=== PATIENT | male | born 1945 | race Caucasian/White ===

== ENCOUNTER 2017-05-23 08:59 | Day surgery (SDC) | payer MEDICARE, BC ==
[~2017-05-23 08:59] MED LIST: EPINEPHRINE INJ 1 MG/10 ML DISP.SYRIN ONE; FENTANYL CITRATE INJ/PF 100 MCG/2 ML AMPUL ONE; FLUMAZENIL INJ 0.5 MG/5 ML VIAL ONE; GLUCAGON,HUMAN RECOMB 1 MG INJ ONE; GLYCOPYRROLATE INJ 0.4 MG/2 ML VIAL ONE; MIDAZOLAM 2 MG/2 ML INJ ONE; NALOXONE HCL INJ/PF 0.4 MG/1 ML SDV ONE; ONDANSETRON HCL INJ/PF 4 MG/2 ML SDV ONE
[2017-05-23 09:18] LABS: HEMOGLOBIN 13.2 g/dL (13.5-17.0); HGB HCT DIFFERENCE 1.6; MEAN CORPUSCULAR HEMOGLOBIN 30.2 pg (27.0-33.4); MEAN CORPUSCULAR HGB CONC 34.6 g/dL (32.0-36.0); MEAN CORPUSCULAR VOLUME 87 fl (80-97); RED BLOOD COUNT 4.37 10^6/uL (4.35-5.55); WHITE BLOOD COUNT 5.5 10^3/uL (4.0-10.5)
--- NOTE | 2017-05-23 12:07 | Operative Report ---
Operative Report DATE OF SURGERY: 05/23/17 PREOPERATIVE DIAGNOSIS: Abdominal pain, history of colon polyps POSTOPERATIVE DIAGNOSIS: Abdominal pain, multiple colon polyps. OPERATION: Esophagogastroduodenoscopy with antral biopsy and esophageal biopsies. Colonoscopy with snare polypectomies of 4 polyps. SURGEON: YASH CHAND ANESTHESIA: GA TISSUE REMOVED OR ALTERED: Antral biopsy. Distal esophageal biopsy. Proximal transverse colon polyp. Proximal sigmoid colon polyp. Mid sigmoid colon polyp. Distal sigmoid colon polyp. COMPLICATIONS: None ESTIMATED BLOOD LOSS: Minimal INTRAOPERATIVE FINDINGS: Very mild erythema of the gastric mucosa. But no ulcers. Circumferential salmon colored mucosa of the distal 2 cm of the esophagus. 1 cm sessile polyp at the proximal aspect of the transverse colon. 1 cm sessile polyp at the proximal aspect of the sigmoid colon. 1 cm sessile polyp at the mid sigmoid colon. Half centimeter sessile polyp at the distal sigmoid colon. PROCEDURE: Informed consent was obtained. Patient was brought to the endoscopy suite. IV sedation with Versed and fentanyl was administered. Endoscope was passed via the patient's mouth into the second portion of the duodenum. The duodenum appeared to be normal. The gastric mucosa had very subtle erythema but no ulcers and no erosions. Antral biopsy was taken. At the distal esophagus there was a 2 cm circumferential region of salmon colored mucosa but no ulcers and no masses. This region was biopsied at 4 quadrants. Remainder of the esophagus appeared normal. Patient was repositioned. Digital rectal exam revealed no palpable perianal masses. Endoscope was passed via the patient's anus it was fed to the cecum. The bowel prep was good and visualization was good. The cecum and the right colon appeared normal. At the proximal aspect of the transverse colon there was a 1 cm sessile polyp which was snare polypectomy and the specimen retrieved. At the proximal aspect of the sigmoid colon there was a 1 cm sessile polyp which was snare polypectomied and specimen retrieved. There was another polyp of similar size and appearance at the mid sigmoid colon that was also snare polypectomied need and specimen retrieved. There was a distal sigmoid colon half centimeter polyp which was snare polypectomied and the specimen retrieved. The rectum appeared normal. Patient tolerated procedure well with no apparent complications and was taken to the recovery area in stable condition.
--- NOTE | 2017-05-23 12:09 | PDOC DISCHARGE SUMMARY ---
Discharge Summary (SDC) - Discharge Final Diagnosis: Multiple colon polyps. Abdominal pain. Date of Surgery: 05/23/17 Discharge Date: 05/23/17 Condition: Good Treatment or Instructions: May discharge patient home when met discharge criteria. Follow-up with de upper endoscopy with biopsies. Colonoscopy with multiple snare polypectomies. In 2 weeks. Discharge Diet: As Tolerated Discharge Activity: Activity As Tolerated Report the Following to Your Physician Immediately: Increase in Pain, Fever over 101 Degrees, Unusual Bleeding
[2017-05-23 12:41] VITALS: BP 142/59
== END 2017-05-23 12:40 | disposition home or self-care (01) ==
LOC: END 08:59
PROVIDERS: ATTEND Surgery
PROC: 0DBL8ZX Excision of Transverse Colon, Via Natural or Artificial Opening Endoscopic, Diagnostic (ICD-10-PCS; 2017-05-23)
PROC: 0DB38ZX Excision of Lower Esophagus, Via Natural or Artificial Opening Endoscopic, Diagnostic (ICD-10-PCS; 2017-05-23)
PROC: 0DB68ZX Excision of Stomach, Via Natural or Artificial Opening Endoscopic, Diagnostic (ICD-10-PCS; principal; 2017-05-23 10:30)
PROC: 0DBN8ZX Excision of Sigmoid Colon, Via Natural or Artificial Opening Endoscopic, Diagnostic (ICD-10-PCS; 2017-05-23 10:30)
DX: Z12.11 Encounter for screening for malignant neoplasm of colon (principal); D12.5 Benign neoplasm of sigmoid colon; K63.5 Polyp of colon; Z85.038 Personal history of other malignant neoplasm of large intestine; Z80.0 Family history of malignant neoplasm of digestive organs; K29.50 Unspecified chronic gastritis without bleeding; E11.9 Type 2 diabetes mellitus without complications; Z79.84 Long term (current) use of oral hypoglycemic drugs; Z79.899 Other long term (current) drug therapy; Z79.82 Long term (current) use of aspirin; Z85.828 Personal history of other malignant neoplasm of skin; Z85.820 Personal history of malignant melanoma of skin
CPT/HCPCS: 43239; 45385; 36415; 82962; 82378; 85027; 88342 ×2; 88305 ×2; J2250; J3010; J0171; J1610; J2310; J2405; J3490

== ENCOUNTER → 2018-03-10 | Outpatient (CLI) | payer MEDICARE, BC ==
--- NOTE | 2018-03-10 21:10 | RADIOLOGY REPORT (SQ) ---
EXAM DESCRIPTION: MRI HEAD COMBO COMPLETED DATE/TIME: 03/10/2018 12:50 pm REASON FOR STUDY: ABNORMAL BRAIN CT, VERTIGO R90.89 OTH ABNORMAL FINDINGS ON DIAGNOSTIC IMAGING OF CNSL COMPARISON: CT brain 03/02/2018 TECHNIQUE: Multiplanar imaging includes noncontrasted T1, T2, FLAIR, diffusion with ADC map and post gadolinium contrast T1 sequences. Images stored on PACS. CONTRAST TYPE AND DOSE: 20 mL Prohance. RENAL FUNCTION: GFR > 60. LIMITATIONS: None. 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 No developmental anomaly is. CSF SPACES: Normal in size and contour. No hemorrhage. CEREBRUM: Minimal spotty age-appropriate small vessel ischemic change in the hemispheric white matter . No MR evidence of acute ischemic change. No acute intracranial hemorrhage, mass effect, or midlin e shift. POSTERIOR FOSSA: No signal alteration. No hemorrhage. No edema, masses, or mass effect. Internal gerry tory canals, cerebellopontine angles, mastoids normal. No enhancing lesions. No abnormal enhancement post contrast. DIFFUSION IMAGING: Negative for acute or subacute infarction. ORBITS: No masses. Globes normal. PARANASAL SINUSES: Mucus or serous retention cysts in the bilateral maxillary sinuses. OTHER: 2 cm cyst, posterior aspect right parotid gland IMPRESSION: No masses or abnormal enhancement along the internal auditory canals or inner ear struct ures. Age-appropriate white matter disease. Empty sella. 2 cm cyst in the posterior aspect right parotid gland EVIDENCE OF ACUTE STROKE: NO. TECHNICAL DOCUMENTATION: JOB ID: [id number] [employer]- All Rights Reserved Reading location - IP/workstation name: [email or web address]
== END ==
LOC: RAD 11:56
PROVIDERS: ATTEND Physician Assistant
DX: R90.89 Other abnormal findings on diagnostic imaging of central nervous system (principal); R42 Dizziness and giddiness; K11.6 Mucocele of salivary gland
CPT/HCPCS: 82565; 70553; A9576

== ENCOUNTER 2020-03-16 09:55 | Day surgery (SDC) | payer MEDICARE, BC ==
[2020-03-16] MEDS ORDERED: HYDROCODONE/ACETAMINOPHEN 10-325 MG TABLET PO PRN (11:02)
[2020-03-16] MEDS ORDERED: PROPOFOL INJ 200 MG/20 ML VIAL IV ONE (11:08)
[2020-03-16] MEDS ORDERED: LABETALOL HCL INJ 20 MG/4 ML DISP.SYRIN IV PRN (11:59)
--- NOTE | 2020-03-16 12:13 | Operative Report ---
Nonrecallable Operative Report DATE OF SURGERY: 03/16/20 PREOPERATIVE DIAGNOSIS: hx of colon polyps POSTOPERATIVE DIAGNOSIS: hx of colon polyps OPERATION: colonoscopy SURGEON: YUNIEL BRIGGS ANESTHESIA: LMAC TISSUE REMOVED OR ALTERED: colon polyp at 60cm COMPLICATIONS: none ESTIMATED BLOOD LOSS: 5cc INTRAOPERATIVE FINDINGS: see note PROCEDURE: Patient was brought to the operating room awake alert stable condition placed on the operative table in a supine position and given local MAC anesthesia. He was then placed in the left lateral decubitus position. After appropriate timeout site verification the procedure commenced. The Olympus colonoscope was passed into the rectum easily traversed the rectum into the sigmoid colon descending colon up to the splenic flexure into the transverse colon hepatic flexure descending colon all the way to the cecum. As we withdrew the scope over the next 10 minutes we slowly examined the cecum ascending colon and that appeared to be normal without any colonic polyps the hepatic flexure was visualized well and that appeared to be free of any mucosal abnormalities or polyps transverse colon splenic flexure also appeared to be within normal limits. As we began our descent down the descending colon we identified a small flat polyp at approximately 60 cm in the descending colon which was cold forceps biopsy removed. It was sent to pathology. Scope was then slowly withdrawn through the sigmoid colon the rectum no other mucosal abnormalities were identified. Findings 1.. Colonic polyp at 60 cm cold biopsy removed. Patient will need a repeat colonoscopy in 3 years pending pathology results
--- NOTE | 2020-03-16 12:14 | Discharge Summary ---
Discharge Summary (SDC) - Discharge Final Diagnosis: Colonic polyps Date of Surgery: 03/16/20 Condition: Good Referrals: ZULY HAQ MD [Primary Care Provider] - Discharge Diet: As Tolerated Discharge Activity: Activity As Tolerated, No Lifting Over 10 Pounds Report the Following to Your Physician Immediately: Shortness of Breath, Nausea, Vomiting, Increase in Pain
[2020-03-16 13:42] VITALS: BP 179/99
== END 2020-03-16 13:05 | disposition home or self-care (01) ==
LOC: OROUT 09:55
PROVIDERS: ATTEND Surgery
DX: Z12.11 Encounter for screening for malignant neoplasm of colon (principal); D12.4 Benign neoplasm of descending colon; Z86.010 Personal history of colon polyps; Z80.0 Family history of malignant neoplasm of digestive organs; Z90.49 Acquired absence of other specified parts of digestive tract; C61 Malignant neoplasm of prostate; E11.9 Type 2 diabetes mellitus without complications; E78.00 Pure hypercholesterolemia, unspecified; Z79.899 Other long term (current) drug therapy; Z79.82 Long term (current) use of aspirin; Z79.84 Long term (current) use of oral hypoglycemic drugs; I10 Essential (primary) hypertension
CPT/HCPCS: 45380; 36415; 82962; 84132; 88305 ×2; U0003; J2704; C9803; 811; 87635